=== PATIENT | female | born 1945 | race Caucasian/White ===

== ENCOUNTER 2018-10-09 12:10 | Emergency (ER) | payer MEDICARE ==
--- NOTE | 2018-10-09 13:26 | UC ---
Skin Complaint HPI - HPI Summary HPI Summary: pt started exp itchy rash on lower mid back on . traveled by car from [facility] the day after rash started and has never gotten better. Til itching all times of day, has used antibiotic oint. no better. rash is no where else on body, denies exposure to scabies or other parasites no fever/chills. Is not feeling ill - History of Current Complaint Chief Complaint: UCRash Time Seen by Provider: 10/09/18 12:55 Stated Complaint: RASH/BACK Hx Obtained From: Patient ?: No Onset/Duration: Gradual Onset Pain Intensity: 0 Location: Discrete - mid lower back Aggravating Factor(s): Nothing Alleviating Factor(s): Nothing Associated Signs & Symptoms: Positive: Negative - Allergy/Home Medications Allergies/Adverse Reactions: Allergies Allergy/AdvReac Type Severity Reaction Status Date / Time No Known Allergies Allergy Verified 10/09/18 12:34 Home Medications: Home Medications Mv-Mn/Folic Acid/Calcium/Vit K [Women's 50 Plus Daily Formula] 1 each PO DAILY 10/09/18 [History Confirmed 10/09/18] Pravastatin Sodium 40 mg PO DAILY 10/09/18 [History Confirmed 10/09/18] Valsartan TAB* [Diovan TAB*] 80 mg PO DAILY 10/09/18 [History Confirmed 10/09/18 ] PMH/Surg Hx/FS Hx/Imm Hx Previously Healthy: Yes Endocrine History: Dyslipidemia Cardiovascular History: Hypertension - Surgical History Surgical History: Yes Surgery Procedure, Year, and Place: [place], hysterectomy, knee, bladder suspension - Family History Known Family History: Positive: Non-Contributory - Social History Occupation: Retired Lives: Alone Alcohol Use: Daily Substance Use Type: None Smoking Status (MU): Former Smoker Review of Systems All Other Systems Reviewed And Are Negative: Yes Constitutional: Positive: Negative Skin: Positive: Rash Respiratory: Positive: Negative Cardiovascular: Positive: Negative Genitourinary: Positive: Negative. Negative: Dysuria, Frequency Musculoskeletal: Positive: Negative Neurological: Positive: Negative. Negative: Headache Psychological: Positive: Negative Is Patient Immunocompromised?: No Physical Exam Triage Information Reviewed: Yes Appearance: Well-Appearing, No Pain Distress, Well-Nourished Vital Signs: Initial Vital Signs Temp 97.9 F 10/09/18 12:29 Pulse 76 10/09/18 12:29 Resp 16 10/09/18 12:29 BP 127/76 10/09/18 12:29 Pulse Ox 98 10/09/18 12:29 Vital Signs Reviewed: Yes Eye Exam: Normal Eyes: Positive: Conjunctiva Clear ENT Exam: Normal Respiratory Exam: Normal Respiratory: Positive: Lungs clear Cardiovascular Exam: Normal Cardiovascular: Positive: RRR Musculoskeletal Exam: Normal Psychological Exam: Normal Skin: Positive: Rashes - faint, slightly raised, individual pinpoint lesions, some scabbed, no pustules or vesicles, rash is bilateral lower back Course/Dx - Differential Diagnoses - Skin Complaint Differential Diagnoses: Allergic Reaction, Cellulitis, Contact Dermatitis, Impetigo, Scabies, Urticaria - Diagnoses Provider Diagnosis: Dermatitis Discharge - Sign-Out/Discharge Documenting (check all that apply): Patient Departure All imaging exams completed and their final reports reviewed: No Studies - Discharge Plan Condition: Good Disposition: HOME Prescriptions: Betamethasone Dipropionate 0.05 % EX BID #15 gm Patient Education Materials: Contact Dermatitis (ED) Referrals: No Primary Care Phys,NOPCP [Primary Care Provider] - Additional Instructions: apply steroid cream as directed use Benadryl gel 2-3 times a day (this is over the counter) return if your rash worsens or other symptoms develop - Billing Disposition and Condition Condition: GOOD Disposition: Home
== END 2018-10-09 13:30 | disposition home or self-care (01) ==
LOC: UCEAST 12:10
DX: L30.9 Dermatitis, unspecified (principal); E78.5 Hyperlipidemia, unspecified; I10 Essential (primary) hypertension; Z87.891 Personal history of nicotine dependence
CPT/HCPCS: 99202; G0463